=== PATIENT | male | born 1965 | race American Indian/Alaskan Native ===

== ENCOUNTER 2017-05-21 19:19 | Emergency (ER) | payer OTHER ==
[2017-05-21] MEDS ORDERED: Sodium Chloride 0.9% 1,000 ML IV ONE (19:30)
[2017-05-21] MEDS ORDERED: Ondansetron 4 MG/2 ML SDV IV ONE (19:34)
[2017-05-21] MEDS ORDERED: Pantoprazole 40 MG Vial IVPUSH ONE (19:34)
[2017-05-21] MEDS ORDERED: Pantoprazole 80 MG in Sodium Chloride 0.9% 100 ML IV SCH (19:45)
[2017-05-21] MEDS ORDERED: Pantoprazole 80 MG in Sodium Chloride 0.9% 100 ML IV ONE (19:45)
--- NOTE | 2017-05-21 19:59 | EDM.PDOC ---
ED HPI GENERAL MEDICAL PROBLEM - General Stated Complaint: AMBULANCE Time Seen by Provider: 05/21/17 19:55 Source of Information: Reports: Patient History Limitations: Reports: No Limitations - History of Present Illness INITIAL COMMENTS - FREE TEXT/NARRATIVE: states started feeling sick ~ 3pm retched few times then tried to drink some sprite didn't stay down and vomited it up. got home tried to rest but started vomiting yellow which stopped. then ~ 6:30pm vomited blood and called EMS. denies prior h/o, was Dx with ulcer few years ago but hadn't had time to get Rx and didn't have further abd' problems till today. used to drink but not now. Left Upper Abdominal Pain Score (Numeric/FACES): 6 - Related Data Allergies Allergy/AdvReac Type Severity Reaction Status Date / Time No Known Allergies Allergy Verified 05/21/17 20:04 Home Meds: Home Meds Pioglitazone HCl 15 mg PO DAILY 05/21/17 [History] Saxagliptin HCl [Onglyza] 5 mg PO DAILY 05/21/17 [History] ED ROS GENERAL - Review of Systems Review Of Systems: ROS reveals no pertinent complaints other than HPI. ED EXAM, GI/ABD - Physical Exam Exam: See Below Exam Limited By: No Limitations General Appearance: Alert, WD/WN, Mild Distress, Other (haematemesis) Ears: Hearing Grossly Normal Throat/Mouth: Normal Voice, No Airway Compromise Head: Atraumatic Neck: Non-Tender, Full Range of Motion Respiratory/Chest: No Respiratory Distress Cardiovascular: Regular Rate, Rhythm GI/Abdominal Exam: Soft, Tender, Other (mild epig from retching). No: Guarding , Rigid, Rebound Neurological: Alert, Oriented, Normal Cognition, Normal Gait, No Motor/Sensory Deficits Psychiatric: Flat Affect Skin Exam: Warm, Dry, Normal Color Lymphatic: No Adenopathy Course - Vital Signs Last Recorded V/S: Last Vital Signs Temp 37.0 C 05/21/17 19:20 Pulse 114 H 05/21/17 19:20 Resp 18 05/21/17 19:20 BP 138/81 05/21/17 19:20 Pulse Ox 100 05/21/17 19:20 - Orders/Labs/Meds Orders: Active Orders 24 hr Category Date Time Status Pantoprazole [ProTONIX IV] 80 mg Med 05/21/17 19:45 Active Sodium Chloride 0.9% [Normal Saline] 100 ml IV .Continuous Sodium Chloride 0.9% [Normal Saline] 1,000 ml Med 05/21/17 19:30 Active IV ONETIME Medication Orders Pantoprazole Sodium 80 mg/ (Sodium Chloride) 100 mls @ 10 mls/hr IV .Continuous ONE Stop: 05/22/17 05:44 Last Admin: 05/21/17 19:57 Dose: 10 mls/hr Sodium Chloride (Normal Saline) 1,000 mls @ 30 mls/hr IV ONETIME ONE Stop: 05/23/17 04:49 Last Admin: 05/21/17 19:34 Dose: 30 mls/hr Labs: Laboratory Tests 05/21/17 05/21/17 05/21/17 Range/Units 19:30 19:30 19:30 WBC 11.1 H (5.0-10.0) 10^3/uL RBC 3.75 L (4.6-6.2) 10^6/uL Hgb 12.2 L (14.0-18.0) g/dL Hct 35.5 L (40.0-54.0) % MCV 94.7 (80-100) fL MCH 32.5 (27.0-34.0) pg MCHC 34.4 (33.0-35.0) g/dL Plt Count 132 L (150-450) 10^3/uL Neut % (Auto) 87.1 H (42.2-75.2) % Lymph % (Auto) 7.1 L (20.5-50.1) % [place] % (Auto) 4.4 (2-8) % Eos % (Auto) 0.8 L (1.0-3.0) % Baso % (Auto) 0.6 (0.0-1.0) % PT 11.6 (9.0-12.0) SEC INR 1.2 (0.9-1.2) APTT 28.7 (22.0-34.0) SEC Sodium 135 (135-145) mmol/L Potassium 3.8 (3.6-5.0) mmol/L Chloride 97 L (101-111) mmol/L Carbon Dioxide 24.0 (21.0-31.0) mmol/L Anion Gap 17.8 BUN 42 H (7-18) mg/dL Creatinine 1.2 (0.6-1.3) mg/dL Est Cr Clr Drug Dosing TNP Estimated GFR (MDRD) > 60 BUN/Creatinine Ratio 35.00 Glucose 260 H (74-105) mg/dL Calcium 9.0 (8.4-10.2) mg/dl Total Bilirubin 2.1 H (0.2-1.0) mg/dL AST 65 H (10-42) IU/L ALT 58 (10-60) IU/L Alkaline Phosphatase 233 H (42-121) IU/L Total Protein 9.5 H (6.7-8.2) g/dl Albumin 3.1 L (3.2-5.5) g/dl Globulin 6.4 Albumin/Globulin Ratio 0.48 Ethyl Alcohol mg/dL 05/21/17 Range/Units 19:30 WBC (5.0-10.0) 10^3/uL RBC (4.6-6.2) 10^6/uL Hgb (14.0-18.0) g/dL Hct (40.0-54.0) % MCV (80-100) fL MCH (27.0-34.0) pg MCHC (33.0-35.0) g/dL Plt Count (150-450) 10^3/uL Neut % (Auto) (42.2-75.2) % Lymph % (Auto) (20.5-50.1) % [place] % (Auto) (2-8) % Eos % (Auto) (1.0-3.0) % Baso % (Auto) (0.0-1.0) % PT (9.0-12.0) SEC INR (0.9-1.2) APTT (22.0-34.0) SEC Sodium (135-145) mmol/L Potassium (3.6-5.0) mmol/L Chloride (101-111) mmol/L Carbon Dioxide (21.0-31.0) mmol/L Anion Gap BUN (7-18) mg/dL Creatinine (0.6-1.3) mg/dL Est Cr Clr Drug Dosing Estimated GFR (MDRD) BUN/Creatinine Ratio Glucose (74-105) mg/dL Calcium (8.4-10.2) mg/dl Total Bilirubin (0.2-1.0) mg/dL AST (10-42) IU/L ALT (10-60) IU/L Alkaline Phosphatase (42-121) IU/L Total Protein (6.7-8.2) g/dl Albumin (3.2-5.5) g/dl Globulin Albumin/Globulin Ratio Ethyl Alcohol < 5 mg/dL Meds: Medications Generic Name Dose Route Start Last Admin Trade Name Freq PRN Reason Stop Dose Admin Pantoprazole Sodium 80 mg/ 100 mls @ 10 mls/hr 05/21/17 19:45 05/21/17 19:57 Sodium Chloride IV 05/22/17 05:44 10 mls/hr .Continuous ONE Administration Sodium Chloride 1,000 mls @ 30 mls/hr 05/21/17 19:30 05/21/17 19:34 Normal Saline IV 05/23/17 04:49 30 mls/hr ONETIME ONE Administration Discontinued Medications Generic Name Dose Route Start Last Admin Trade Name Freq PRN Reason Stop Dose Admin Pantoprazole Sodium 80 mg/ 100 mls @ 10 mls/hr 05/21/17 19:45 Sodium Chloride IV .Continuous JOYCE Ondansetron HCl 4 mg 05/21/17 19:34 05/21/17 19:39 Zofran IV 05/21/17 19:35 4 mg ONETIME ONE Administration Pantoprazole Sodium 80 mg 05/21/17 19:34 05/21/17 19:42 Protonix Iv IVPUSH 05/21/17 19:35 80 mg .BOLUS ONE Administration - Re-Assessments/Exams Free Text/Narrative Re-Assessment/Exam: 05/21/17 20:57 re-exam; pt sleeping arousable no c/o. case discussed with Dr Harris @ who kindly accepted pt. Departure - Departure Time of Disposition: 20:58 Disposition: DC/Tfer to Acute Hospital 02 Condition: Fair Clinical Impression: Upper GI bleed - Discharge Information Forms: Interfacility Transfer EMTALA - My Orders Last 24 Hours: My Active Orders 05/21/17 19:30 Sodium Chloride 0.9% [Normal Saline] 1,000 ml IV ONETIME 05/21/17 19:45 Pantoprazole [ProTONIX IV] 80 mg Sodium Chloride 0.9% [Normal Saline] 100 ml IV .Continuous - Assessment/Plan Last 24 Hours: My Active Orders 05/21/17 19:30 Sodium Chloride 0.9% [Normal Saline] 1,000 ml IV ONETIME 05/21/17 19:45 Pantoprazole [ProTONIX IV] 80 mg Sodium Chloride 0.9% [Normal Saline] 100 ml IV .Continuous
[2017-05-21 20:01] LABS: CHLORIDE,CL 97 mmol/L (101-111); SODIUM,NA 135 mmol/L (135-145)
[2017-05-21 21:28] VITALS: BP 138/78
== END 2017-05-21 21:35 ==
LOC: DL.ED 19:19
DX: K92.2 Gastrointestinal hemorrhage, unspecified (principal); Z79.899 Other long term (current) drug therapy
CPT/HCPCS: 36415; 80053; 85025; 85610; 85730; 96365; 96366; 96375; 96376; 99285; C9113; G0480; J2405; J7030; J7050; 99284

== ENCOUNTER 2017-08-04 11:36 | Emergency (ER) | payer OTHER ==
[2017-08-04] MEDS ORDERED: Sodium Chloride 0.9% 10 ML Syringe FLUSH PRN (12:12)
--- NOTE | 2017-08-04 12:19 | EDM.PDOC ---
ED HPI GENERAL MEDICAL PROBLEM - General Chief Complaint: Abdominal Pain Stated Complaint: DIARRHEA, STATUS POST EGD Time Seen by Provider: 08/04/17 12:05 Source of Information: Reports: Patient, RN, RN Notes Reviewed History Limitations: Reports: No Limitations - History of Present Illness INITIAL COMMENTS - FREE TEXT/NARRATIVE: Pt presents to the ER with c/o right upper and lower quadrant, as well as epigastric pain. He rates the pain 7/10. He states the pain began last evening about 6pm, as well as very dark stools. He denies vomiting, fever or chills. He states he had an EGD on Monday which was a follow up. He states he has had upper GI bleeding with banding. Onset: Gradual Onset Date: 08/03/17 Onset Time: 18:00 Duration: Getting Worse Location: Reports: Abdomen Quality: Reports: Sharp Severity: Moderate Improves with: Reports: None Worsens with: Reports: None Associated Symptoms: Reports: Other (diarrhea) - Related Data Allergies Allergy/AdvReac Type Severity Reaction Status Date / Time No Known Allergies Allergy Verified 05/21/17 20:04 Home Meds: Home Meds Pioglitazone HCl 15 mg PO DAILY 05/21/17 [History] Saxagliptin HCl [Onglyza] 5 mg PO DAILY 05/21/17 [History] Aspirin [Ecotrin] 81 mg PO DAILY 08/04/17 [History] Past Medical History HEENT History: Reports: Impaired Vision Other HEENT History: wears corrective lenses Cardiovascular History: Reports: None Respiratory History: Reports: None Gastrointestinal History: Reports: PUD Other Gastrointestinal History: states has been diagnosed with ulcers in the past. never bleeding Genitourinary History: Reports: None Musculoskeletal History: Reports: Other (See Below) Other Musculoskeletal History: knee injury Neurological History: Reports: None Psychiatric History: Reports: None Endocrine/Metabolic History: Reports: Diabetes, Type II Hematologic History: Reports: None Immunologic History: Reports: None Oncologic (Cancer) History: Reports: None Dermatologic History: Reports: Eczema Other Dermatologic History: uses skin washes - Past Surgical History Musculoskeletal Surgical History: Reports: Other (See Below) Other Musculoskeletal Surgeries/Procedures:: surgery on knee while in high school Social & Family History - Family History Family Medical History: Noncontributory - Tobacco Use Smoking Status *Q: Current Every Day Smoker Years of Tobacco use: 35 Packs/Tins Daily: 0.2 - Caffeine Use Caffeine Use: Reports: Tea - Recreational Drug Use Recreational Drug Use: No ED ROS GENERAL - Review of Systems Review Of Systems: ROS reveals no pertinent complaints other than HPI. ED EXAM, GI/ABD - Physical Exam Exam: See Below Exam Limited By: No Limitations General Appearance: Alert, WD/WN, No Apparent Distress Ears: Normal External Exam, Hearing Grossly Normal Nose: Normal Inspection Throat/Mouth: Normal Inspection, Normal Voice, No Airway Compromise Head: Atraumatic, Normocephalic Neck: Normal Inspection, Supple, Non-Tender, Full Range of Motion Respiratory/Chest: No Respiratory Distress, Lungs Clear, Normal Breath Sounds, No Accessory Muscle Use, Chest Non-Tender Cardiovascular: Normal Peripheral Pulses, Regular Rate, Rhythm, No Edema, No Gallop, No JVD, No Murmur, No Rub GI/Abdominal Exam: Normal Bowel Sounds, Soft, No Organomegaly, No Distention, No Abnormal Bruit, No Mass, Tender (RUQ, RLQ, epigastrum\) (Male) Exam: Deferred Rectal (Males) Exam: Black Stool, Heme + Stool Back Exam: Normal Inspection, Full Range of Motion Extremities: Normal Inspection, Normal Range of Motion, Non-Tender, No Pedal Edema, Normal Capillary Refill Neurological: Alert, Oriented, Normal Cognition, Normal Gait, No Motor/Sensory Deficits Psychiatric: Normal Affect, Normal Mood Skin Exam: Warm, Dry, Intact, Normal Color, No Rash Lymphatic: No Adenopathy Course - Orders/Labs/Meds Orders: Active Orders 24 hr Category Date Time Status Peripheral IV Care [RC] . DIRECTED Care 08/04/17 12:13 Active Morphine Med 08/04/17 13:54 Once 2 mg IVPUSH ONETIME ONE Pantoprazole 40 MG in Sodium Chloride 0.9% @ 20 MLS/HR( Med 08/04/17 14:00 Ordered 100ml) Pantoprazole [ProTONIX IV] 40 mg Sodium Chloride 0.9% [Normal Saline] 100 ml IV .CONTINUOS Sodium Chloride 0.9% [Saline Flush] Med 08/04/17 12:12 Active 10 ml FLUSH ASDIRECTED PRN Peripheral IV Insertion Adult [OM.PC] Stat Oth 08/04/17 12:12 Ordered Medication Orders Pantoprazole Sodium 40 mg/ (Sodium Chloride) 100 mls @ 20 mls/hr IV .CONTINUOS JOYCE Sodium Chloride (Saline Flush) 10 ml FLUSH ASDIRECTED PRN PRN Reason: Keep Vein Open Last Admin: 08/04/17 13:32 Dose: 10 ml Labs: Laboratory Tests 08/04/17 08/04/17 08/04/17 Range/Units 12:23 12:23 12:23 WBC 7.3 (5.0-10.0) 10^3/uL RBC 2.76 L (4.6-6.2) 10^6/uL Hgb 8.6 L D (14.0-18.0) g/dL Hct 26.5 L (40.0-54.0) % MCV 96.0 (80-100) fL MCH 31.2 (27.0-34.0) pg MCHC 32.5 L (33.0-35.0) g/dL Plt Count 101 L (150-450) 10^3/uL Neut % (Auto) 64.1 (42.2-75.2) % Lymph % (Auto) 21.2 (20.5-50.1) % [place] % (Auto) 7.5 (2-8) % Eos % (Auto) 6.4 H (1.0-3.0) % Baso % (Auto) 0.8 (0.0-1.0) % Sodium 139 (135-145) mmol/L Potassium 3.7 (3.6-5.0) mmol/L Chloride 107 (101-111) mmol/L Carbon Dioxide 24.0 (21.0-31.0) mmol/L Anion Gap 11.7 BUN 16 D (7-18) mg/dL Creatinine 0.6 (0.6-1.3) mg/dL Est Cr Clr Drug Dosing TNP Estimated GFR (MDRD) > 60 BUN/Creatinine Ratio 26.66 Glucose 141 H (74-105) mg/dL Calcium 8.2 L (8.4-10.2) mg/dl Total Bilirubin 1.2 H (0.2-1.0) mg/dL AST 69 H (10-42) IU/L ALT 55 (10-60) IU/L Alkaline Phosphatase 151 H (42-121) IU/L Total Protein 7.0 (6.7-8.2) g/dl Albumin 2.6 L (3.2-5.5) g/dl Globulin 4.4 Albumin/Globulin Ratio 0.59 Amylase 21 L (28-100) U/L Lipase 23 (22-51) U/L Meds: Medications Generic Name Dose Route Start Last Admin Trade Name Freq PRN Reason Stop Dose Admin Pantoprazole Sodium 40 mg/ 100 mls @ 20 mls/hr 08/04/17 14:00 Sodium Chloride IV .CONTINUOS JOYCE Sodium Chloride 10 ml 08/04/17 12:12 08/04/17 13:32 Saline Flush FLUSH 10 ml ASDIRECTED PRN Administration Keep Vein Open Discontinued Medications Generic Name Dose Route Start Last Admin Trade Name Freq PRN Reason Stop Dose Admin Sodium Chloride 1,000 mls @ 999 mls/hr 08/04/17 12:26 08/04/17 13:32 Normal Saline IV 08/04/17 13:26 999 mls/hr .BOLUS ONE Administration Octreotide Acetate 50 mcg 08/04/17 13:49 Sandostatin IVPUSH 08/04/17 13:50 ONETIME ONE Pantoprazole Sodium 40 mg 08/04/17 13:48 Protonix Iv IVPUSH 08/04/17 13:49 ONETIME ONE Departure - Departure Time of Disposition: 13:54 Disposition: DC/Tfer to Acute Hospital 02 Condition: Fair Clinical Impression: GI bleed Qualifiers: GI bleed type/associated pathology: unspecified gastrointestinal hemorrhage type Qualified Code(s): K92.2 - Gastrointestinal hemorrhage, unspecified - Discharge Information Forms: ED Department Discharge, Interfacility Transfer EMTALA - My Orders Last 24 Hours: My Active Orders 08/04/17 12:12 Sodium Chloride 0.9% [Saline Flush] 10 ml FLUSH ASDIRECTED PRN Peripheral IV Insertion Adult [OM.PC] Stat 08/04/17 12:13 Peripheral IV Care [RC] . DIRECTED 08/04/17 13:54 Morphine 2 mg IVPUSH ONETIME ONE 08/04/17 14:00 Pantoprazole 40 MG in Sodium Chloride 0.9% @ 20 MLS/HR(100ml) Pantoprazole [ ProTONIX IV] 40 mg Sodium Chloride 0.9% [Normal Saline] 100 ml IV .CONTINUOS - Assessment/Plan Last 24 Hours: My Active Orders 08/04/17 12:12 Sodium Chloride 0.9% [Saline Flush] 10 ml FLUSH ASDIRECTED PRN Peripheral IV Insertion Adult [OM.PC] Stat 08/04/17 12:13 Peripheral IV Care [RC] . DIRECTED 08/04/17 13:54 Morphine 2 mg IVPUSH ONETIME ONE 08/04/17 14:00 Pantoprazole 40 MG in Sodium Chloride 0.9% @ 20 MLS/HR(100ml) Pantoprazole [ ProTONIX IV] 40 mg Sodium Chloride 0.9% [Normal Saline] 100 ml IV .CONTINUOS
[2017-08-04] MEDS ORDERED: Sodium Chloride 0.9% 1,000 ML IV ONE (12:26)
[2017-08-04 12:51] LABS: CHLORIDE,CL 107 mmol/L (101-111); SODIUM,NA 139 mmol/L (135-145)
[2017-08-04] MEDS ORDERED: Pantoprazole 40 MG Vial IVPUSH ONE (13:48)
[2017-08-04] MEDS ORDERED: Octreotide 100 MCG/ML SDV IVPUSH ONE (13:49)
[2017-08-04] MEDS ORDERED: Morphine 2 MG/ML Syringe IVPUSH ONE (13:54)
[2017-08-04] MEDS ORDERED: Octreotide 500 MCG in Sodium Chloride 0.9% 250 ML IV ONE (14:00)
[2017-08-04] MEDS ORDERED: Pantoprazole 40 MG in Sodium Chloride 0.9% 100 ML IV SCH (14:00)
[2017-08-04 14:47] VITALS: BP 138/77
== END 2017-08-04 15:15 ==
LOC: DL.ED 11:36
DX: K92.2 Gastrointestinal hemorrhage, unspecified (principal); E11.9 Type 2 diabetes mellitus without complications; F17.210 Nicotine dependence, cigarettes, uncomplicated; Z79.82 Long term (current) use of aspirin; Z79.899 Other long term (current) drug therapy
CPT/HCPCS: 36415; 80053; 82150; 82272; 83690; 85025; 96365; 96375; 96376; 99285; C9113; J2270; J2354; J7030; J7050

== ENCOUNTER 2017-10-03 09:53 | Emergency (ER) | payer MEDICAID, OTHER ==
[2017-10-03 09:57] VITALS: BP 122/61
[2017-10-03] MEDS ORDERED: Sodium Chloride 0.9% 10 ML Syringe FLUSH PRN (10:08)
[2017-10-03] MEDS ORDERED: Ondansetron 4 MG/2 ML SDV IV ONE (10:09)
[2017-10-03] MEDS ORDERED: Sodium Chloride 0.9% 1,000 ML IV ONE (10:09)
[2017-10-03 10:47] LABS: ANION GAP 9.3; CHLORIDE,CL 98 mmol/L (101-111); SODIUM,NA 131 mmol/L (135-145)
[2017-10-03] MEDS ORDERED: Morphine 2 MG/ML Syringe IVPUSH ONE (11:11)
--- NOTE | 2017-10-03 11:37 | EDM.PDOC ---
ED HPI GENERAL MEDICAL PROBLEM - General Chief Complaint: Abdominal Pain Stated Complaint: N & V. IN BY SL AMB Time Seen by Provider: 10/03/17 10:05 Source of Information: Reports: Patient, EMS, EMS Notes Reviewed, RN, RN Notes Reviewed History Limitations: Reports: No Limitations - History of Present Illness INITIAL COMMENTS - FREE TEXT/NARRATIVE: Patient presents to ER with complaint of nausea and vomiting since Monday after an EGD. He states no BM since Monday. Patient states no alcohol use since April. Duration: Getting Worse Location: Reports: Abdomen Quality: Reports: Ache Severity: Severe Improves with: Reports: None Worsens with: Reports: None Associated Symptoms: Reports: No Other Symptoms Right Abdominal Pain Score (Numeric/FACES): 7 - Related Data Allergies Allergy/AdvReac Type Severity Reaction Status Date / Time No Known Allergies Allergy Verified 10/03/17 09:57 Home Meds: Home Meds Pioglitazone HCl 15 mg PO DAILY 05/21/17 [History] Saxagliptin HCl [Onglyza] 5 mg PO DAILY 05/21/17 [History] Aspirin [Ecotrin] 81 mg PO DAILY 08/04/17 [History] Nadolol [Corgard] 20 mg PO DAILY 10/03/17 [History] Past Medical History HEENT History: Reports: Impaired Vision Other HEENT History: wears corrective lenses Cardiovascular History: Reports: None Respiratory History: Reports: None Gastrointestinal History: Reports: PUD Other Gastrointestinal History: states has been diagnosed with ulcers in the past. never bleeding Genitourinary History: Reports: None Musculoskeletal History: Reports: Other (See Below) Other Musculoskeletal History: knee injury Neurological History: Reports: None Psychiatric History: Reports: None Endocrine/Metabolic History: Reports: Diabetes, Type II Hematologic History: Reports: None Immunologic History: Reports: None Oncologic (Cancer) History: Reports: None Dermatologic History: Reports: Eczema Other Dermatologic History: uses skin washes - Past Surgical History GI Surgical History: Reports: EGD Musculoskeletal Surgical History: Reports: Other (See Below) Other Musculoskeletal Surgeries/Procedures:: surgery on knee while in high school Social & Family History - Family History Family Medical History: Noncontributory - Tobacco Use Smoking Status *Q: Current Every Day Smoker Years of Tobacco use: 35 Packs/Tins Daily: 0.2 - Caffeine Use Caffeine Use: Reports: Coffee - Recreational Drug Use Recreational Drug Use: No ED ROS GENERAL - Review of Systems Review Of Systems: ROS reveals no pertinent complaints other than HPI. ED EXAM, GI/ABD - Physical Exam Exam: See Below Exam Limited By: No Limitations General Appearance: Alert, WD/WN, No Apparent Distress Eyes: Bilateral: Normal Appearance Ears: Normal External Exam, Normal Canal, Hearing Grossly Normal, Normal TMs Nose: Normal Inspection, Normal Mucosa, No Blood Throat/Mouth: Normal Inspection, Normal Lips, Normal Teeth, Normal Gums, Normal Oropharynx, Normal Voice, No Airway Compromise Head: Atraumatic, Normocephalic Neck: Normal Inspection, Supple, Non-Tender, Full Range of Motion Respiratory/Chest: Other (clear but diminished) Cardiovascular: Normal Peripheral Pulses, Regular Rate, Rhythm, No Edema, No Gallop, No JVD, No Murmur, No Rub GI/Abdominal Exam: Other (tenderness right upper quadrant and right lower quadrant.) (Male) Exam: Deferred Rectal (Males) Exam: Deferred Back Exam: Normal Inspection Extremities: Other (decreased range of motion, weak.) Neurological: Alert, Oriented, CN II-XII Intact, Normal Cognition, Normal Gait, Normal Reflexes, No Motor/Sensory Deficits Psychiatric: Flat Affect Skin Exam: Other (pale) Lymphatic: No Adenopathy Course - Vital Signs Last Recorded V/S: Last Vital Signs Temp 98.8 F 10/03/17 09:56 Pulse 60 10/03/17 09:56 Resp 20 10/03/17 09:56 BP 122/61 10/03/17 09:56 Pulse Ox 99 10/03/17 09:56 - Orders/Labs/Meds Labs: Laboratory Tests 10/03/17 10/03/17 10/03/17 Range/Units 10:20 10:20 10:20 WBC 9.9 (5.0-10.0) 10^3/uL RBC 3.57 L (4.6-6.2) 10^6/uL Hgb 8.5 L (14.0-18.0) g/dL Hct 26.8 L (40.0-54.0) % MCV 75.1 L D (80-100) fL MCH 23.8 L (27.0-34.0) pg MCHC 31.7 L (33.0-35.0) g/dL Plt Count 353 D (150-450) 10^3/uL Neut % (Auto) 70.9 (42.2-75.2) % Lymph % (Auto) 16.4 L (20.5-50.1) % [place] % (Auto) 8.2 H (2-8) % Eos % (Auto) 2.9 (1.0-3.0) % Baso % (Auto) 1.6 H (0.0-1.0) % Sodium 131 L (135-145) mmol/L Potassium 3.3 L (3.6-5.0) mmol/L Chloride 98 L (101-111) mmol/L Carbon Dioxide 27.0 (21.0-31.0) mmol/L Anion Gap 9.3 BUN 11 (7-18) mg/dL Creatinine 0.5 L (0.6-1.3) mg/dL Est Cr Clr Drug Dosing 188.25 mL/min Estimated GFR (MDRD) > 60 BUN/Creatinine Ratio 22.00 Glucose 132 H (74-105) mg/dL Lactic Acid 1.0 (0.5-2.2) mmol/L Calcium 8.3 L (8.4-10.2) mg/dl Total Bilirubin 0.9 (0.2-1.0) mg/dL AST 37 (10-42) IU/L ALT 31 (10-60) IU/L Alkaline Phosphatase 181 H (42-121) IU/L Total Protein 7.9 (6.7-8.2) g/dl Albumin 2.7 L (3.2-5.5) g/dl Globulin 5.2 Albumin/Globulin Ratio 0.52 Urine Color (YELLOW) Urine Appearance (CLEAR) Urine pH (5.0-9.0) Ur Specific [place] (1.005-1.030) Urine Protein (NEGATIVE) Urine Glucose (UA) (NEGATIVE) Urine Ketones (NEGATIVE) Urine Occult Blood (NEGATIVE) Urine Nitrite (NEGATIVE) Urine Bilirubin (NEGATIVE) Urine Urobilinogen (0.2-1.0) mg/dL Ur Leukocyte Esterase (NEGATIVE) Urine RBC /HPF Urine WBC (0-5/HPF) /HPF Ur Epithelial Cells /HPF Amorphous Sediment (0/HPF) /HPF Urine Bacteria (0-FEW/HPF) /HPF Urine Mucus /LPF Urine Opiates Screen (NEGATIVE) Ur Oxycodone Screen (NEGATIVE) Urine Methadone Screen (NEGATIVE) Ur Barbiturates Screen (NEGATIVE) U Tricyclic Antidepress (NEGATIVE) Ur Phencyclidine Scrn (NEGATIVE) Ur Amphetamine Screen (NEGATIVE) U Methamphetamines Scrn (NEGATIVE) Urine MDMA Screen (NEGATIVE) U Benzodiazepines Scrn (NEGATIVE) Urine Cocaine Screen (NEGATIVE) U Marijuana (THC) Screen (NEGATIVE) Ethyl Alcohol 5 mg/dL 10/03/17 10/03/17 Range/Units 11:09 11:09 WBC (5.0-10.0) 10^3/uL RBC (4.6-6.2) 10^6/uL Hgb (14.0-18.0) g/dL Hct (40.0-54.0) % MCV (80-100) fL MCH (27.0-34.0) pg MCHC (33.0-35.0) g/dL Plt Count (150-450) 10^3/uL Neut % (Auto) (42.2-75.2) % Lymph % (Auto) (20.5-50.1) % [place] % (Auto) (2-8) % Eos % (Auto) (1.0-3.0) % Baso % (Auto) (0.0-1.0) % Sodium (135-145) mmol/L Potassium (3.6-5.0) mmol/L Chloride (101-111) mmol/L Carbon Dioxide (21.0-31.0) mmol/L Anion Gap BUN (7-18) mg/dL Creatinine (0.6-1.3) mg/dL Est Cr Clr Drug Dosing mL/min Estimated GFR (MDRD) BUN/Creatinine Ratio Glucose (74-105) mg/dL Lactic Acid (0.5-2.2) mmol/L Calcium (8.4-10.2) mg/dl Total Bilirubin (0.2-1.0) mg/dL AST (10-42) IU/L ALT (10-60) IU/L Alkaline Phosphatase (42-121) IU/L Total Protein (6.7-8.2) g/dl Albumin (3.2-5.5) g/dl Globulin Albumin/Globulin Ratio Urine Color [place] (YELLOW) Urine Appearance Clear (CLEAR) Urine pH 7.0 (5.0-9.0) Ur Specific [place] 1.015 (1.005-1.030) Urine Protein Trace H (NEGATIVE) Urine Glucose (UA) Negative (NEGATIVE) Urine Ketones Negative (NEGATIVE) Urine Occult Blood Negative (NEGATIVE) Urine Nitrite Negative (NEGATIVE) Urine Bilirubin Negative (NEGATIVE) Urine Urobilinogen >=8.0 H (0.2-1.0) mg/dL Ur Leukocyte Esterase Negative (NEGATIVE) Urine RBC Not seen /HPF Urine WBC 0-5 (0-5/HPF) /HPF Ur Epithelial Cells Occasional /HPF Amorphous Sediment Few (0/HPF) /HPF Urine Bacteria Not seen (0-FEW/HPF) /HPF Urine Mucus Few H /LPF Urine Opiates Screen Negative (NEGATIVE) Ur Oxycodone Screen Negative (NEGATIVE) Urine Methadone Screen Negative (NEGATIVE) Ur Barbiturates Screen Negative (NEGATIVE) U Tricyclic Antidepress Negative (NEGATIVE) Ur Phencyclidine Scrn Negative (NEGATIVE) Ur Amphetamine Screen Negative (NEGATIVE) U Methamphetamines Scrn Negative (NEGATIVE) Urine MDMA Screen Negative (NEGATIVE) U Benzodiazepines Scrn Negative (NEGATIVE) Urine Cocaine Screen Negative (NEGATIVE) U Marijuana (THC) Screen Positive H (NEGATIVE) Ethyl Alcohol mg/dL Meds: Medications Discontinued Medications Generic Name Dose Route Start Last Admin Trade Name Freq PRN Reason Stop Dose Admin Sodium Chloride 1,000 mls @ 999 mls/hr 10/03/17 10:09 10/03/17 10:47 Normal Saline IV 10/03/17 11:09 999 mls/hr .BOLUS ONE Administration Metoclopramide HCl 10 mg 10/03/17 11:42 10/03/17 11:47 Reglan IVPUSH 10/03/17 11:43 10 mg ONETIME ONE Administration Metoclopramide HCl Confirm 10/03/17 11:43 10/03/17 11:48 Reglan Administered 10/03/17 11:44 Not Given Dose 10 mg .ROUTE .STK-MED ONE Morphine Sulfate 2 mg 10/03/17 11:11 10/03/17 11:17 Morphine IVPUSH 10/03/17 11:12 2 mg ONETIME ONE Administration Ondansetron HCl 4 mg 10/03/17 10:09 10/03/17 10:48 Zofran IV 10/03/17 10:10 4 mg ONETIME ONE Administration Sodium Chloride 10 ml 10/03/17 10:08 10/03/17 10:48 Saline Flush FLUSH 10 ml ASDIRECTED PRN Administration Keep Vein Open Departure - Departure Time of Disposition: 11:35 Disposition: DC/Tfer to Acute Hospital 02 Condition: Fair Clinical Impression: Abdominal pain Qualifiers: Abdominal location: right lower quadrant Qualified Code(s): R10.31 - Right lower quadrant pain Vomiting Qualifiers: Vomiting type: unspecified Vomiting Intractability: unspecified Nausea presence : with nausea Qualified Code(s): R11.2 - Nausea with vomiting, unspecified Anemia Qualifiers: Anemia type: unspecified type Qualified Code(s): D64.9 - Anemia, unspecified - Discharge Information Forms: ED Department Discharge, Interfacility Transfer [facility]
[2017-10-03] MEDS ORDERED: Metoclopramide 10 MG/2 ML SDV IVPUSH ONE (11:42)
[2017-10-03] MEDS ORDERED: Metoclopramide 10 MG/2 ML SDV ONE (11:43)
== END 2017-10-03 11:48 ==
LOC: DL.ED 09:53
DX: D64.9 Anemia, unspecified (principal); R10.31 Right lower quadrant pain; R11.2 Nausea with vomiting, unspecified; E11.9 Type 2 diabetes mellitus without complications; F17.210 Nicotine dependence, cigarettes, uncomplicated; Z79.82 Long term (current) use of aspirin; Z79.899 Other long term (current) drug therapy
CPT/HCPCS: 36415; 80053; 80305; 81001; 82272; 83605; 85025; 96361; 96374; 96375; 99285; G0480; J2270; J2405; J2765; J7030; J7050